=== PATIENT | male | born 2000 | race Caucasian/White ===

== ENCOUNTER 2023-07-24 01:10 | Emergency (ER) | payer OTHER ==
[~2023-07-24] VITALS: Ht 172.7 cm; Wt 90.9 kg
[2023-07-24] MEDS ORDERED: ZOFRAN ODT4 MG PO (02:10)
[2023-07-24 02:30] VITALS: BP 133/80; PULSE 82; TEMP 100.6
== END 2023-07-24 02:30 | disposition home or self-care (01) ==
LOC: COL.ER 01:10
DX: J06.9 Acute upper respiratory infection, unspecified (principal); Z20.822 Contact with and (suspected) exposure to COVID-19